=== PATIENT | female | born 1995 | race Caucasian/White ===

== ENCOUNTER 2021-01-27 14:07 | Emergency (ER) | payer OTHER ==
[~2021-01-27] VITALS: Ht 165.1 cm; Wt 59.0 kg
[~2021-01-27 14:07] MED LIST: LIDOcaine 1% W/epiNEPHrine 1:200,000 10ml vial ONE
[2021-01-27 14:33] VITALS: BP 115/74
[2021-01-27] MEDS ORDERED: TETanus/Pertussis (Acell)/Diphther VAC/PF (Tdap-Adult) 0.5ml syringe IMVAC ONE (15:25)
--- NOTE | 2021-01-27 15:37 | NUR ---
Pt has an avulsion to the pad of R 4th finger.
--- NOTE | 2021-01-27 16:45 | NUR ---
Pt given and understands d/c instructions. Ambulatory with a steady gait.
== END 2021-01-27 16:45 | disposition home or self-care (01) ==
LOC: ER 14:08
DX: S61.314A Laceration without foreign body of right ring finger with damage to nail, initial encounter (principal); W27.8XXA Contact with other nonpowered hand tool, initial encounter; Y93.89 Activity, other specified; Y92.89 Other specified places as the place of occurrence of the external cause; Y99.8 Other external cause status
CPT/HCPCS: 90471; 90715; 99283; J3490